=== PATIENT | female | born 1970 | race Caucasian/White ===

== ENCOUNTER 2019-04-15 09:34 | Emergency (ER) | payer OTHER ==
[~2019-04-15] VITALS: Ht 165.1 cm; Wt 100.2 kg
[2019-04-15 11:25] VITALS: BP 148/74
== END 2019-04-15 11:25 | disposition home or self-care (01) ==
LOC: ED 09:34
DX: L03.116 Cellulitis of left lower limb (principal); I10 Essential (primary) hypertension; E11.9 Type 2 diabetes mellitus without complications
CPT/HCPCS: J7512

== ENCOUNTER 2019-04-17 09:35 | Emergency (ER) | payer OTHER ==
[~2019-04-17] VITALS: Ht 165.1 cm; Wt 100.2 kg
[2019-04-17 09:43] VITALS: Ht 165.1 cm; Wt 100.2 kg
[2019-04-17 11:09] VITALS: BP 130/83
== END 2019-04-17 11:09 | disposition home or self-care (01) ==
LOC: ED 09:35
DX: R21 Rash and other nonspecific skin eruption (principal); L29.9 Pruritus, unspecified; I10 Essential (primary) hypertension; E11.9 Type 2 diabetes mellitus without complications; M10.9 Gout, unspecified
CPT/HCPCS: J2001